=== PATIENT | male | born 1980 | race Hispanic/Latino ===

== ENCOUNTER 2016-04-02 10:17 | Emergency (ER) | payer SELFPAY ==
[~2016-04-02] VITALS: Ht 165.1 cm; Wt 72.3 kg
[~2016-04-02 10:17] MED LIST: HAL5 PO; LORA1TAB PO
--- NOTE | 2016-04-02 10:20 | ED.REPORT ---
HPI-Extremity Problem Upper Date of Service Apr 02, 2016 ED Provider: Dr. De Pt is a 35 year old male with a history of substance abuse who presents to the ED with complaints of left thumb pain that started several months ago. He reports that the pain has been getting progressively worse since its onset, and is now exacerbated with movement. He denies any previous injury to this digit, any fevers or any other symptoms. Nursing Notes Stated Complaint: LEFT THUMB ISSUES Chief Complaint: Extremity Trauma Nursing Notes Reviewed: Yes Allergies: Coded Allergies: No Known Allergies (Unverified , 11/23/15) Scheduled Haloperidol (Haloperidol) 5 Mg Tablet 5 MG PO ONC Scheduled PRN Lorazepam (Lorazepam) 1 Mg Tablet 2 MG PO TID PRN PRN For Anxiety Naproxen (Naproxen) 500 Mg Tab 500 MG PO BID PRN PRN For Pain General Time Seen by MD: 10:26 Chief Complaint Finger injury left 5 Hx Obtained From: Patient Arrived By: Walk-in Symptom Duration: Since onset Severity: Current: Mild Severity: Maximum: Moderate Similar Sx Previous: Yes Past Medical History Past Medical History IV Heroin abuse, on suboxone Hep C Anxiety Denies DC Past Surgical History Jaw surgery Smoking History Current Every Day Smoker Social History IV heroin abuse Street Ativan for anxiety Denies other drug use Drug Use: IV drugs Ambulatory Status Independent Review of Systems Constitutional: Denies: Chills, Fever, Malaise, Weakness - generalized Musculoskeletal: Reports: Back pain, Denies: Extremity pain, Neck pain Skin: Denies Rash Neurologic: Denies: Abnormal movement, Change LOC, Headache, Syncope, Weakness Complete sys rev & neg: except as marked. Physical Exam Initial Vital Signs Vital Signs (First) Date Time Temp Pulse Resp B/P Pulse Ox O2 Delivery O2 Flow Rate FiO2 04/02/16 10:21 36.2 99 18 142/78 100 Initial VS: Reviewed General/Constitutional: Well-developed, Well-nourished Head / Eyes: Atraumatic, Normocephalic, PERRL ENT: Mucous membranes moist, Conjunctiva normal, No scleral icterus Neck: Supple, Non-tender, Full range of motion Skin: Warm, Dry, No cyanosis Neurologic: Alert, Oriented, Nonfocal Psychiatric: Mood/affect normal, Behavior normal, Normal thought content Wrist / Hand: Full range of motion, No swelling, No erythema, No deformity, Neurologic intact, Vascular intact No redness, or warmth Crepitus in the interphalangeal aspect of left thumb Interpretation & Diagnostics X-Ray Interpretation Xray Interpretation: IMPRESSION: No radiographic explanation for left thumb pain. Dictated by: Larry Rosario M.D. on 04/02/2016 at 11:08 X-Ray Ordered: Hand left Interpretation / Wet Read by: Interpret - Radiologist Re-Eval/Medical Decision Med Decision/Clinical Course Chronic pain suspect overuse injury there is some crepitus within the joint, not consistent with any sort of infection or gout. Patiently placed in a splint for comfort and naproxen. Follow-up precautions advised. Source of Hx: Old records Re-Evaluation/Progress : Time of Eval: 11:11 Re-Evaluation/Progress Note: Pt is rechecked and informed of his imaging results and the plan to discharge him at this time. He understands and agrees, all questions are addressed Counseled Regarding: Diagnosis, Lab results, When/why to return to ED Discharge & Departure Impression: Primary Impression: Thumb pain Laterality: left Qualified Code: M79.645 - Pain in left finger(s) Disposition: Home Discharge Condition All VS Reviewed: Yes Condition: Stable Additional Instructions: Use the splint and naproxen as prescribed. Follow-up with a primary care or hand specialist as needed. Return to the ER as needed if worse Referrals: [facility] Attestation Portions of this note were transcribed by Ana Molina. I, Dr. De personally performed the history, physical exam and medical decision-making; I reviewed and confirmed the accuracy of the information in the transcribed note. Signed by: Joshua Park, 04/02/2016 11:15 copies to: [facility] Mauri De DO Apr 02, 2016 10:20 HARDEEP MOLINA Apr 02, 2016 10:32
[2016-04-02 10:21] VITALS: BP 142/78; PULSE 99; RESP 18; O2SAT 100
--- NOTE | 2016-04-02 11:10 | DRSVH ---
PROCEDURE: X-RAY FINGERS, TWO VIEWS INDICATIONS: 35-year-old male with thumb pain for 4 months, without known injury. TECHNIQUE: AP hand, 2 views of the left first finger(s) acquired. COMPARISON: None. FINDINGS: Bones: No fractures or dislocations. No joint degeneration. No suspicious bony lesions. Soft tissues: No suspicious soft tissue calcifications. IMPRESSION: No radiographic explanation for left thumb pain. Dictated by: Larry Rosario M.D. on 04/02/2016 at 11:08 Approved by: Larry Rosario M.D. on 04/02/2016 at 11:08
[2016-04-02] MEDS ORDERED: NPR500T PO (11:13)
[2016-04-02 11:25] VITALS: BP 145/92; PULSE 103; RESP 16; O2SAT 99
== END 2016-04-02 11:26 | disposition home or self-care (01) ==
LOC: SED 10:17
DX: M79.645 Pain in left finger(s) (principal); F17.200 Nicotine dependence, unspecified, uncomplicated